=== PATIENT | male | born 1965 | race Caucasian/White ===

== ENCOUNTER → 2017-07-23 | Outpatient (CLI) | payer OTHER ==
[~2017-07-23] MED LIST: ATIVAN0.5 MG PO; CELEBREX 200 M200 MG PO; CELEXA 10 MG TA10 MG PO; CELEXA 20 MG TA20 MG PO; HYDROCODON-ACE1 EAC7 PO; IBUPROFEN 800800 M1 PO; LIPITOR20 MG PO; NABUMETONE 750750 M1 PO; NEXIUM40 MG PO; OMEPRAZOLE 20 M20 M1 PO; VIAGRA100 MG PO; ZYRTEC10 MG PO
== END ==
LOC: ULTRA 08:34
DX: N63 Unspecified lump in breast (principal)